=== PATIENT | female | born 1995 | race Native Hawaiian/Other Pacific Islander ===

== ENCOUNTER 2018-06-04 04:25 | Emergency (ER) | payer OTHER ==
[~2018-06-04] VITALS: Ht 149.9 cm; Wt 55.8 kg
[2018-06-04 04:27] VITALS: BP 125/65
[2018-06-04] MEDS ORDERED: HYDROcodone/APAP 10/325 MG 1 TAB TAB PO ONE (04:50)
[2018-06-04] MEDS ORDERED: ONDANSETRON 4 MG ODT PO ONE (04:50)
[2018-06-04 05:16] VITALS: BP 125/65
== END 2018-06-04 05:16 | disposition home or self-care (01) ==
LOC: MED 04:25
DX: N39.0 Urinary tract infection, site not specified (principal)
CPT/HCPCS: 81002; 81025; 99283; Q0162